=== PATIENT | female | born 1975 | race Caucasian/White ===

== ENCOUNTER 2017-03-28 15:03 | Day surgery (SDC) | payer OTHER ==
[2017-03-28] MEDS ORDERED: ONDANSETRON 4 MG/2 ML VIAL IVP ONE (15:50)
[2017-03-28] MEDS: LACTATED RINGERS 1,000 ML IV SCH ×2 (15:50→16:32)
[2017-03-28] MEDS ORDERED: DEXAMETHASONE SOD PHOSPHATE 10 MG/ML 1 ML VIAL IV ONE (15:51)
[2017-03-28 16:32] LABS: Basophils # (A) 0.1 k/uL (0-0.2); Basophils % (A) 1 %; CH 34.6; CHCM 37.1; Eosinophils # (A) 0.3 k/uL (0-0.7); Eosinophils % (A) 4 %; HCT 39.4 % (34.0-46.0); HDW 2.81; HGB 13.9 gm/dL (11.4-16.0); Luc # (Auto) 0.12; Luc % (Auto) 2; Lymphocytes # (A) 1.5 k/uL (1.0-4.8); Lymphocytes % (A) 23 %; MCH 33.1 pg (25.0-35.0); MCHC 35.3 g/dL (31.0-37.0); MCV 93.5 fL (80.0-100.0); Mean Platelet Volume 7.1; Monocytes # (A) 0.3 k/uL (0-1.0); Monocytes % (A) 5 %; Neutrophils # (A) 4.3 k/uL (1.3-7.7); Neutrophils % (A) 66 %; RBC 4.22 m/uL (3.80-5.40); RDW 12.1 % (11.5-15.5); WBC 6.5 k/uL (3.8-10.6); WBC (Perox) 6.63
[2017-03-28] MEDS ORDERED: MIDAZOLAM 2 MG/2 ML VIAL ONE (16:34)
[2017-03-28] MEDS ORDERED: KETOROLAC 30 MG/ML 1 ML VIAL ONE (16:34)
[2017-03-28] MEDS ORDERED: fentaNYL (PF) 50 MCG/ML 2 ML AMP ONE (16:34)
[2017-03-28] MEDS ORDERED: PROPOFOL 10 MG/ML 20 ML VIAL IV ONE (16:34)
[2017-03-28] MEDS ORDERED: Rhogam IMMUNE GLOBULIN 1,500 UNIT/1 ML IM ONE (16:41)
--- NOTE | 2017-03-28 17:03 | P.OP ---
Date of Procedure: 03/28/17 Preoperative Diagnosis: Missed AB at 9 weeks gestation, Rh- Postoperative Diagnosis: Same Procedure(s) Performed: Suction dilatation and curettage of the uterus Implants: Anesthesia: KADEA Surgeon: Richelle Shah Estimated Blood Loss (ml): 50 IV fluids (ml): 300 Urine output (ml): 0 Pathology: other (Gestational tissue) Condition: stable Disposition: PACU Indications for Procedure: Operative Findings: Description of Procedure: Patient is brought to the operating suite where general anesthetic is administered. She's placed in the dorsal lithotomy position. The cervix, vagina, perineum and periurethral areas are all prepped and draped in the usual sterile fashion. The appropriate timeout was performed to assure proper patient and procedural identification. Bladder is drained, no urine is present. Examination under anesthesia reveals a retroverted uterus that is mobile, symmetric, 8-10 week size. Anterior lip of the cervix is grasped with a double-tooth tenaculum after the weighted speculum is placed. Cervix sounds to a depth of 10 cm in the retroverted position. The cervix is now gently and systematically dilated using Hanks dilators. A #9 curved sterile plastic curette is then placed to the dome of the fundus. Under appropriate filling pressures the uterus is thoroughly curettaged for a moderate amount of tissue. When this is complete, a sharp medium curette is used in the "cry of the uterus" is appreciated in all 4 quadrants. The suction curet is once again placed and no additional tissue or blood is procured. All sponge needle and instrument counts are correct at the end of our procedure. Patient is brought back to the recovery room in very good condition with stable vital signs including blood pressure 105/56, pulse 50, 99% O2 saturation. Patient has been given Toradol prior to leaving the operative suite. She will receive RhoGAM in the postoperative area as well. She will follow-up with me in the office in 2 weeks.
[2017-03-28 17:04] VITALS: TEMP 97.3
[2017-03-28 17:44] VITALS: RESP 16
[2017-03-28 18:00] VITALS: BP 102/66; PULSE 52
== END 2017-03-28 18:16 | disposition home or self-care (01) ==
LOC: OR 15:03
PROVIDERS: ATTEND Obstetrics & Gynecology
DX: O02.1 Missed abortion (principal)
CPT/HCPCS: 86900; 86901; 85025; 86850; 59820; J2791; J2250; J1100; J2405; J3010; J1885; J2704; 88305

== ENCOUNTER 2017-04-03 05:18 | Emergency (ER) | payer OTHER ==
[2017-04-03] MEDS ORDERED: SODIUM CHLORIDE 0.9% 1,000 ML IV ONE (05:40)
[2017-04-03] MEDS ORDERED: MORPHINE SULFATE 4 MG/ML SYRINGE IV STA (05:40)
--- NOTE | 2017-04-03 05:42 | ED ---
General Adult HPI - General Source: patient, family, RN notes reviewed Mode of arrival: ambulatory Limitations: no limitations <Aj Garvin - Last Filed: 04/03/17 06:17> <Cory Casillas - Last Filed: 04/03/17 08:34> - General Chief complaint: Vaginal Bleeding Stated complaint: Vaginal bleeding Time Seen by Provider: 04/03/17 05:36 - History of Present Illness Initial comments: Patient is a pleasant 41-year-old female presenting to the emergency Department with vaginal bleeding. Patient did have D&C done here with Dr. Shah 6 days ago. Patient has had mild discomfort and minimal bleeding since that time. Patient had some increased discomfort and bloating yesterday. Discomfort has been intermittent. Patient has had heavy bleeding since around 4 AM this morning. Discomfort is currently mild to moderate. (Aj Garvin) - Related Data Home Medications Medication Instructions Recorded Confirmed Pnv,Calcium 72/Iron/Folic Acid 1 tab PO DAILY 04/03/17 04/03/17 [ Plus Tablet] Allergies Allergy/AdvReac Type Severity Reaction Status Date / Time No Known Allergies Allergy Verified 04/03/17 07:29 Review of Systems ROS Other: All systems not noted in ROS Statement are negative. Constitutional: Denies: fever Eyes: Denies: eye pain ENT: Denies: ear pain Respiratory: Denies: cough Cardiovascular: Denies: chest pain Endocrine: Denies: fatigue Gastrointestinal: Reports: abdominal pain (Lower abdomen/pelvic) Genitourinary: Denies: dysuria Musculoskeletal: Denies: back pain Skin: Denies: rash Neurological: Denies: weakness <Aj Garvin - Last Filed: 04/03/17 06:17> ROS Other: All systems not noted in ROS Statement are negative. <Cory Casillas - Last Filed: 04/03/17 08:34> ROS Statement: Those systems with pertinent positive or pertinent negative responses have been documented in the HPI. Past Medical History Past Medical History: No Reported History History of Any Multi-Drug Resistant Organisms: None Reported Additional Past Surgical History / Comment(s): ectopic with right tube removal 20 yrs ago,. d&c 18 yrs ago Past Anesthesia/Blood Transfusion Reactions: No Reported Reaction Past Psychological History: No Psychological Hx Reported Smoking Status: Never smoker Past Alcohol Use History: Occasional Past Drug Use History: None Reported - Past Family History Mother Family Medical History: No Reported History <Aj Garvin Last Filed: 04/03/17 06:17> General Exam Limitations: no limitations General appearance: alert, in no apparent distress Head exam: Present: atraumatic Eye exam: Present: normal appearance, PERRL ENT exam: Present: normal oropharynx Neck exam: Present: normal inspection Respiratory exam: Present: normal lung sounds bilaterally Cardiovascular Exam: Present: regular rate, normal rhythm GI/Abdominal exam: Present: soft. Absent: tenderness External exam: Present: normal external exam (RN is present) Speculum exam: Present: vaginal bleeding (Mild to moderate clots in the vaginal vault) By manual exam: Present: normal by manual exam Extremities exam: Present: normal inspection Neurological exam: Present: alert Psychiatric exam: Present: normal affect, normal mood Skin exam: Present: normal color <Aj Garvin Filed: 04/03/17 06:17> General appearance: alert, in no apparent distress Head exam: Present: atraumatic, normocephalic, normal inspection Eye exam: Present: normal appearance, PERRL, EOMI. Absent: scleral icterus, conjunctival injection, periorbital swelling ENT exam: Present: normal exam, mucous membranes moist Neck exam: Present: normal inspection. Absent: tenderness, meningismus, lymphadenopathy Respiratory exam: Present: normal lung sounds bilaterally. Absent: respiratory distress, wheezes, rales, rhonchi, stridor Cardiovascular Exam: Present: regular rate, normal rhythm, normal heart sounds. Absent: systolic murmur, diastolic murmur, rubs, gallop, clicks GI/Abdominal exam: Present: soft, normal bowel sounds. Absent: distended, tenderness, guarding, rebound, rigid Extremities exam: Present: normal inspection, full ROM, normal capillary refill. Absent: tenderness, pedal edema, joint swelling, calf tenderness Back exam: Present: normal inspection Neurological exam: Present: alert, oriented X3, CN II-XII intact Psychiatric exam: Present: normal affect, normal mood Skin exam: Present: warm, dry, intact, normal color. Absent: rash <Cory Casillas - Last Filed: 04/03/17 08:34> Course <Aj Garvin Last Filed: 04/03/17 06:17> <Cory Casillas - Last Filed: 04/03/17 08:34> Vital Signs 04/03/17 04/03/17 05:23 08:22 Temperature 98.4 F 98.6 F Pulse Rate 62 50 L Respiratory 18 15 Rate Blood Pressure 119/77 102/57 O2 Sat by Pulse 99 98 Oximetry - Reevaluation(s) Reevaluation #1: 04/03/17 08:33 At this time patient has no active bleeding (Cory Casillas) Medical Decision Making <Aj Garvin - Last Filed: 04/03/17 06:17> - Lab Data Result diagrams: 04/03/17 06:11 04/03/17 06:11 - Radiology Data Radiology results: report reviewed (Ultrasound consistent with post D&C changes) , image reviewed <Cory Casillas - Last Filed: 04/03/17 08:34> - Medical Decision Making 41 female the ER for evaluation of vaginal bleeding, post D&C, normal changes, patient can be discharged home to follow-up with Dr. Shah (Cory Casillas ) - Lab Data Lab Results 04/03/17 04/03/17 04/03/17 Range/Units 06:11 06:11 06:11 WBC 8.6 (3.8-10.6) k/uL RBC 4.07 (3.80-5.40) m/uL Hgb 14.1 (11.4-16.0) gm/dL Hct 37.8 (34.0-46.0) % MCV 92.8 (80.0-100.0) fL MCH 34.5 (25.0-35.0) pg MCHC 37.2 H (31.0-37.0) g/dL RDW 12.0 (11.5-15.5) % Plt Count 234 (150-450) k/uL Neutrophils % 73 % Lymphocytes % 15 % Monocytes % 4 % Eosinophils % 5 % Basophils % 1 % Neutrophils # 6.2 (1.3-7.7) k/uL Lymphocytes # 1.3 (1.0-4.8) k/uL Monocytes # 0.4 (0-1.0) k/uL Eosinophils # 0.4 (0-0.7) k/uL Basophils # 0.1 (0-0.2) k/uL PT 9.8 (9.0-12.0) sec INR 1.0 (<1.1) APTT 23.2 (22.0-30.0) sec Sodium 142 (137-145) mmol/L Potassium 3.9 (3.5-5.1) mmol/L Chloride 105 (98-107) mmol/L Carbon Dioxide 25 (22-30) mmol/L Anion Gap 12 mmol/L BUN 19 H (7-17) mg/dL Creatinine 0.80 (0.52-1.04) mg/dL Est GFR (MDRD) Af Amer >60 (>60 ml/min/1.73 sqM) Est GFR (MDRD) Non-Af >60 (>60 ml/min/1.73 sqM) Glucose 82 (74-99) mg/dL Calcium 9.8 (8.4-10.2) mg/dL Total Bilirubin 0.7 (0.2-1.3) mg/dL AST 21 (14-36) U/L ALT 34 (9-52) U/L Alkaline Phosphatase 78 (38-126) U/L Total Protein 6.5 (6.3-8.2) g/dL Albumin 4.1 (3.5-5.0) g/dL HCG, Quant 4516.3 mIU/mL Disposition <Aj Garvin - Last Filed: 04/03/17 06:17> <Cory Casillas - Last Filed: 04/03/17 08:34> Clinical Impression: Vaginal bleeding Narrative: Post Op D and C (Cory Casillas) Disposition: HOME SELF-CARE Condition: Good Instructions: Dysfunctional Uterine Bleeding (ED) Referrals: Lenny Clements MD [Primary Care Provider] - 1-2 days
[2017-04-03] MEDS ORDERED: MORPHINE SULFATE 2 MG/ML SYRINGE IVP ONE (06:06)
[2017-04-03 06:30] LABS: Basophils # (A) 0.1 k/uL (0-0.2); Basophils % (A) 1 %; CH 33.5; CHCM 36.3; Eosinophils # (A) 0.4 k/uL (0-0.7); Eosinophils % (A) 5 %; HCT 37.8 % (34.0-46.0); HDW 2.89; HGB 14.1 gm/dL (11.4-16.0); Luc # (Auto) 0.23; Luc % (Auto) 3; Lymphocytes # (A) 1.3 k/uL (1.0-4.8); Lymphocytes % (A) 15 %; MCH 34.5 pg (25.0-35.0); MCHC 37.2 g/dL (31.0-37.0); MCV 92.8 fL (80.0-100.0); Mean Platelet Volume 6.3; Monocytes # (A) 0.4 k/uL (0-1.0); Monocytes % (A) 4 %; Neutrophils # (A) 6.2 k/uL (1.3-7.7); Neutrophils % (A) 73 %; RBC 4.07 m/uL (3.80-5.40); WBC 8.6 k/uL (3.8-10.6); WBC (Perox) 9.07
[2017-04-03 06:39] LABS: ALT 34 U/L (9-52); AST 21 U/L (14-36); Alkaline Phosphatase 78 U/L (38-126); Anion Gap 12 mmol/L; Blood Urea Nitrogen 19 mg/dL (7-17); Calcium 9.8 mg/dL (8.4-10.2); Carbon Dioxide 25 mmol/L (22-30); Chloride 105 mmol/L (98-107); Glucose 82 mg/dL (74-99); Non-African American GFR(MDRD) >60 (>60 ml/min/1.73 sqM); Potassium 3.9 mmol/L (3.5-5.1); Sodium 142 mmol/L (137-145); Total Bilirubin 0.7 mg/dL (0.2-1.3); Total Protein 6.5 g/dL (6.3-8.2)
[2017-04-03 06:44] LABS: Partial Thromboplastin Time 23.2 sec (22.0-30.0); Prothrombin Time 9.8 sec (9.0-12.0)
[2017-04-03 06:54] LABS: HCG,Quantitative Serum 4516.3 mIU/mL
--- NOTE | 2017-04-03 08:12 | US ---
EXAMINATION TYPE: US transvaginal DATE OF EXAM: 04/03/2017 COMPARISON: NONE CLINICAL HISTORY: pain. D&C on Monday- miscarriage. Heavy bleeding this morning. TECHNIQUE: Transvaginal (TV) Date of LMP: unknown EXAM MEASUREMENTS: Uterus: 9.8 x 8.2 x 5.6 cm Endometrial Stripe: 3.3 cm Right Ovary: 3.0 x 1.5 x 1.9 cm Left Ovary: 3.1 x 1.6 x 1.0 cm 1. Uterus: Retroverted wnl 2. Endometrium: thickened, heterogenous, nonvascular 3. Right Ovary: hypoechoic lesion = 1.3 x 1.3 x 1.2 cm 4. Left Ovary: follicles Spectral, color and waveform doppler imaging shows good arterial and venous flow within the ovaries ; there is no evidence for ovarian torsion. 5. Bilateral Adnexa: free fluid seen in left adnexa. Cystic lesion seen, unable to determine origin - 2.2 x 3.8 x 2.0 cm 6. Posterior cul-de-sac: no free fluid IMPRESSION: 1. Endometrial thickening and heterogeneity compatible with the history of recent D&C. 2. Simple appearing cyst right ovary. 3. Complex cystic lesion in left adnexa with adjacent free fluid.
[2017-04-03 08:23] VITALS: TEMP 98.6
[2017-04-03 09:11] VITALS: BP 94/61; PULSE 51; RESP 18
== END 2017-04-03 09:10 | disposition home or self-care (01) ==
LOC: EC 05:18
DX: N93.9 Abnormal uterine and vaginal bleeding, unspecified (principal); R14.0 Abdominal distension (gaseous); Z53.20 Procedure and treatment not carried out because of patient's decision for unspecified reasons; Z79.899 Other long term (current) drug therapy
CPT/HCPCS: 36415; 80053; 85025; 85610; 85730; 84702; 93975; 76830; 99284; 96374; 96361 ×3; J2270

== ENCOUNTER → 2017-05-30 | Outpatient (CLI) | payer OTHER ==
--- NOTE | 2017-06-01 10:28 | MM ---
Reason for exam: screening (asymptomatic). Last mammogram was performed 1 year ago. History: Family history of breast cancer in maternal grandmother at age 45. Took hormonal contraceptives for 18 years beginning at age 19. Physical Findings: A clinical breast exam by your physician is recommended on an annual basis and results should be correlated with mammographic findings. MG 3D Screening Mammo W/Cad Bilateral CC and MLO view(s) were taken. Prior study comparison: May 17, 2016, bilateral MG 3d screening mammo w/cad. July 15, 2011, bilateral screening mammogram free. The breast tissue is heterogeneously dense. This may lower the sensitivity of mammography. No suspicious abnormality. No significant changes when compared with prior studies. ASSESSMENT: Negative, BI-RAD 1 RECOMMENDATION: Routine screening mammogram of both breasts in 1 year.
== END | disposition home or self-care (01) ==
LOC: RADMAMWWP 12:49
PROVIDERS: ATTEND Pediatrics
DX: Z12.31 Encounter for screening mammogram for malignant neoplasm of breast (principal)
CPT/HCPCS: 77063; G0202

== ENCOUNTER 2018-10-26 23:33 | Inpatient (IN) | payer OTHER ==
[2018-10-26] MEDS ORDERED: LACTATED RINGERS 1,000 ML IV SCH (23:45)
[2018-10-26] MEDS ORDERED: OXYTOCIN 20 UNITS/1000 ML NS 1,000 ML IV SCH (23:45)
[2018-10-26] MEDS ORDERED: CARBOPROST TROMETHAMINE 250 MCG/ML 1 ML AMP IM PRN (23:55)
[2018-10-26] MEDS ORDERED: PENICILLIN G POTASSIUM 5,000,000 UNIT in DEXTROSE 5% IN WATER 100 ML IVPB STA ×2 (23:55)
[2018-10-26] MEDS ORDERED: TERBUTALINE 1 MG/ML VIAL SQ PRN (23:55)
[2018-10-26] MEDS ORDERED: METHYLERGONOVINE 0.2 MG/ML 1 ML AMP IM PRN (23:55)
[2018-10-26] MEDS ORDERED: OXYTOCIN 10 UNIT/ML 1 ML VIAL IM PRN (23:55)
[2018-10-26] MEDS ORDERED: LIDOCAINE 0.5% (PF) 5 MG/ML (50 ML SDV) SQ PRN (23:55)
[2018-10-27 00:21] VITALS: BMI 24.6
[2018-10-27 00:57] LABS: Basophils # (A) 0.1 k/uL (0-0.2); Basophils % (A) 1 %; Eosinophils # (A) 0.2 k/uL (0-0.7); Eosinophils % (A) 3 %; HCT 39.6 % (34.0-46.0); HGB 13.7 gm/dL (11.4-16.0); Lymphocytes # (A) 1.2 k/uL (1.0-4.8); Lymphocytes % (A) 15 %; MCH 33.4 pg (25.0-35.0); MCHC 34.6 g/dL (31.0-37.0); MCV 96.4 fL (80.0-100.0); Mean Platelet Volume 6.3; Monocytes # (A) 0.4 k/uL (0-1.0); Monocytes % (A) 5 %; Neutrophils # (A) 6.5 k/uL (1.3-7.7); Neutrophils % (A) 76 %; Platelet Count 257 k/uL (150-450); RBC 4.11 m/uL (3.80-5.40); RDW 12.6 % (11.5-15.5); WBC 8.5 k/uL (3.8-10.6)
--- NOTE | 2018-10-27 02:35 | P.HPOB ---
History of Present Illness H&P Date: 10/27/18 Chief Complaint: Labor This is a 43 year old 5 para 2021 woman who presents at 39-5/7 weeks in spontaneous active labor with rupture of membranes. She reports spontaneous rupture of membranes at approximately 2300 on 10/26/2018. Upon presentation rupture of membranes with light meconium-stained fluid is confirmed. She was 3 cm dilated on presentation. has been uncomplicated. She is known group B strep positive and Rh-. Obstetric history: Term normal spontaneous vaginal deliveries in and 2000. Ectopic 1996 missed AB 2016 Laboratory data: Blood type O negative, antibody screen negative, rubella immune , VDRL nonreactive, hepatitis B surface antigen negative, gonorrhea and clinic cultures negative, glucose tolerance testing within normal limits. Group B strep cultures positive. Review of Systems All systems: negative Past Medical History Past Medical History: No Reported History Additional Past Medical History / Comment(s): 1998, 2000 History of Any Multi-Drug Resistant Organisms: None Reported Additional Past Surgical History / Comment(s): ectopic with right tube removal 20 yrs ago,. d&c 18 yrs ago Past Anesthesia/Blood Transfusion Reactions: No Reported Reaction Past Psychological History: No Psychological Hx Reported Smoking Status: Never smoker Past Alcohol Use History: Occasional Past Drug Use History: None Reported - Past Family History Mother Family Medical History: No Reported History Medications and Allergies Home Medications Medication Instructions Recorded Confirmed Type Pnv,Calcium 72/Iron/Folic Acid 1 tab PO DAILY 04/03/17 10/27/18 History [ Plus Tablet] Allergies Allergy/AdvReac Type Severity Reaction Status Date / Time No Known Allergies Allergy Verified 10/26/18 23:54 Exam Vital Signs Temp Pulse Resp BP Pulse Ox 10/27/18 00:16 97.8 F 75 16 119/79 10/26/18 23:54 97.8 F 75 16 117/79 100 Intake and Output 10/26/18 10/26/18 10/27/18 14:59 22:59 06:59 Other: Weight 67.132 kg Upon my initial evaluation patient is completely dilated and involuntarily pushing. Results Result Diagrams: 10/27/18 00:20 Assessment and Plan (1) 39 weeks gestation of Current Visit: Yes Status: Acute Code(s): Z3A.39 - 39 WEEKS GESTATION OF SNOMED Code(s): 36261030 (2) Advanced maternal age (AMA) in Current Visit: Yes Status: Acute Code(s): ZFS5829 - SNOMED Code(s): 237443953 (3) GBS (group B Streptococcus carrier), +RV culture, currently Current Visit: Yes Status: Acute Code(s): O99.820 - STREPTOCOCCUS B CARRIER STATE COMPLICATING SNOMED Code(s): 8745353970632 (4) Rh negative, maternal Current Visit: Yes Status: Acute Code(s): O26.899 - OTH RELATED CONDITIONS, UNSPECIFIED TRIMESTER; Z67.91 - UNSPECIFIED BLOOD TYPE, RH NEGATIVE SNOMED Code(s): 454460309 Plan: 43-year-old 5 para 20-2 woman in spontaneous active labor with rupture of membranes, meconium-stained fluid. status is reassuring by external monitoring. She is receiving prophylactic group B strep antibiotics. She is Rh-. Anticipate normal spontaneous vaginal delivery.
[2018-10-27] MEDS ORDERED: BENZOCAINE/MENTHOL SPRAY 1 GM/SPRAY AEROSOL TOPICAL PRN (02:39)
[2018-10-27] MEDS ORDERED: diphenhydrAMINE 50 MG/ML 1 ML VIAL IVP PRN ×2 (02:39)
[2018-10-27] MEDS ORDERED: diphenhydrAMINE 50 MG CAP PO PRN (02:39)
[2018-10-27] MEDS ORDERED: WITCH HAZEL 1 EACH MED..PAD TOPICAL PRN (02:39)
[2018-10-27] MEDS ORDERED: diphenhydrAMINE 25 MG CAP PO PRN (02:39)
[2018-10-27] MEDS ORDERED: HYDROCORTISONE 2.5% RECTAL CREAM 30 GM TUBE RECTAL PRN (02:39)
[2018-10-27] MEDS ORDERED: ZOLPIDEM 5 MG TAB PO PRN (02:39)
[2018-10-27] MEDS ORDERED: LANOLIN CREAM 5 GM TUBE TOPICAL PRN (02:39)
[2018-10-27] MEDS ORDERED: ACETAMINOPHEN TAB 325 MG TAB PO PRN (02:39)
[2018-10-27] MEDS ORDERED: SIMETHICONE 80 MG CHEWABLE PO PRN (02:39)
[2018-10-27] MEDS ORDERED: IBUPROFEN 600 MG TAB PO PRN (02:39)
--- NOTE | 2018-10-27 02:39 | P.PROBDLV ---
Vaginal Delivery Note - . Vaginal Delivery Note: Findings: Male infant in the vertex occiput anterior position with Apgars of 8 at 1 minute and 9 at 5 minutes weighing 7 lbs. 6 oz., 3330 g. Light meconium- stained fluid. First-degree perineal laceration. Intact, three-vessel cord placenta with meconium staining of membranes. EBL 150 mL's. Delivery summary: This is a 43-year-old 5 para 20-2 woman who presented at 39-5/7 weeks gestation with spontaneous rupture of membranes and active labor. She was 3 cm dilated upon presentation and rapidly progressed to complete over approximately 2 hours. heart tones are reassuring throughout the first stage of labor she did receive penicillin group B strep prophylaxis. She reached complete cervical dilation by approximately 2 AM and commenced pushing with strong maternal effort. She was repositioned, prepped and draped in the modified dorsal lithotomy position. With additional maternal effort the head delivered from the direct occiput anterior position. There was no time for suctioning of the nose and mouth on the perineum secondary to strong maternal expulsive efforts. The rest the infant was delivered rapidly delivered onto the field where the nose and mouth were further bulb suctioned after the baby had immediate spontaneous cry. There was placed on the maternal abdomen where the cord was clamped and cut. Apgars were 8 at 1 minute and 9 at 5 minutes with a weight of 7 lbs. 6 oz. First-degree shallow perineal laceration was noted and was infused with lidocaine. This was repaired with 3- 0 Vicryl suture. An intact, meconium-stained placenta was then expressed after an approximately 5 minute third stage of labor. The uterus was massaged and was noted to be firm. Patient received Pitocin following the third stage of labor. EBL was approximately 150 mL's. Uterus was firm at the level of the umbilicus. Both mother and were doing well post delivery in the room.
[2018-10-27] MEDS ORDERED: OXYTOCIN 20 UNITS/1000 ML NS 1,000 ML IV SCH (02:45)
[2018-10-27] MEDS: SENNOSIDES-DOCUSATE SODIUM 1 EACH TAB PO SCH ×2 (08:00→19:50)
[2018-10-27] MEDS ORDERED: Rhogam IMMUNE GLOBULIN 1,500 UNIT/1 ML IM ONE (18:47)
[2018-10-27] MEDS: PENICILLIN G POTASSIUM 2,500,000 UNIT in DEXTROSE 5% IN WATER 100 ML IVPB SCH ×2 (19:51)
--- NOTE | 2018-10-28 10:07 | P.PNOBGVD ---
Subjective - Subjective Principal diagnosis: day #1 Patient reports: Reports appetite normal, Reports voiding normally, Reports pain well controlled, Reports ambulating normally : doing well, other (Awaiting blood cultures. Discharge anticipated at 48 hours.) Objective - Latest Vital Signs Latest vital signs: Vital Signs Temp Pulse Resp BP Pulse Ox 10/28/18 09:18 98.1 F 83 18 99/69 10/27/18 23:22 98.2 F 78 18 102/70 100 10/27/18 20:00 98 F 74 18 116/72 98 10/27/18 16:00 98.1 F 80 18 110/65 10/27/18 12:00 98.0 F 82 18 114/75 - Exam Extremities: Present: normal Abdomen: Present: normal appearance Uterus: Present: normal Assessment and Plan (1) 39 weeks gestation of Current Visit: Yes Status: Acute Code(s): Z3A.39 - 39 WEEKS GESTATION OF SNOMED Code(s): 21207032 (2) Advanced maternal age (AMA) in Current Visit: Yes Status: Acute Code(s): VMB8041 - SNOMED Code(s): 098652166 (3) GBS (group B Streptococcus carrier), +RV culture, currently Current Visit: Yes Status: Acute Code(s): O99.820 - STREPTOCOCCUS B CARRIER STATE COMPLICATING SNOMED Code(s): 3061760201553 (4) Rh negative, maternal Current Visit: Yes Status: Acute Code(s): O26.899 - OTH RELATED CONDITIONS, UNSPECIFIED TRIMESTER; Z67.91 - UNSPECIFIED BLOOD TYPE, RH NEGATIVE SNOMED Code(s): 000207947 (5) Normal spontaneous vaginal delivery Current Visit: Yes Status: Acute Code(s): O80 - ENCOUNTER FOR FULL-TERM UNCOMPLICATED DELIVERY SNOMED Code(s): 42118678 (6) Perineal laceration with delivery, first degree Current Visit: Yes Status: Acute Code(s): O70.0 - FIRST DEGREE PERINEAL LACERATION DURING DELIVERY SNOMED Code(s): 063552675 Plan: day #1 status post normal spontaneous vaginal delivery. Patient recovering well however onto is recommended to remain for 48 hours secondary to group B strep positive status awaiting blood cultures. Anticipate discharge home tomorrow.
[2018-10-28] MEDS: SENNOSIDES-DOCUSATE SODIUM 1 EACH TAB PO SCH (20:14)
[2018-10-29] MEDS: SENNOSIDES-DOCUSATE SODIUM 1 EACH TAB PO SCH (07:29)
--- NOTE | 2018-10-29 08:08 | P.DS ---
Providers Date of admission: 10/26/18 23:57 Expected date of discharge: 10/29/18 Attending physician: Richelle Shah Primary care physician: Stated None Hospital Course: This is a 43-year-old white female 5 para 20-2 EDC 10/29/2018 at 39-5/7 weeks' gestation. Patient presented with spontaneous amniorrhexis which occurred at home, thin meconium-stained fluid. is unremarkable, rubella status immune, group B strep cultures positive, blood type O-, advanced maternal age noted. Please see admitting history and physical for details. Patient progressed well through labor and went on to deliver vaginally a liveborn male infant with scores of 8 and 9 at one and 5 minutes respectively. He weighed 3330 g, or 7 lbs. 6 oz. There was an estimated blood loss of 150 mL, and a small first-degree perineal laceration easily repaired. Please see dictated delivery note for details. This morning the patient is doing well. She is voiding, ambulating and passing flatus without difficulty. Vital signs are stable and she is afebrile. Fundus is firm and in the midline, symmetric and 18 week size. Extremities are negative. Breast-feeding is going well. has been circumcised and is also doing well. Patient is judged to be in very good condition for discharge home. She will follow-up with me in the office in 6 weeks. I have reminded her no intercourse, tampons or douching. I have given her prescription for a double electric breast pump, she will continue taking her vitamin daily. She will use [id number] Advil, Motrin or Aleve as needed for pain. I've asked her to call me with any fevers shakes or chills, foul smelling or copious lochia, with the passage of large blood clots, with any pain not alleviated by [id number] products, or indeed with any difficulties problems or concerns. We have discussed options for contraception and we will discuss this further in the office. Patient Condition at Discharge: Good Plan - Discharge Summary Discharge Rx Participant: No New Discharge Prescriptions: No Action Pnv,Calcium 72/Iron/Folic Acid [ Plus Tablet] 1 tab PO DAILY Discharge Medication List Pnv,Calcium 72/Iron/Folic Acid [ Plus Tablet] 1 tab PO DAILY 04/03/17 [ History] Follow up Appointment(s)/Referral(s): Richelle Shah MD [STAFF PHYSICIAN] - 6 Weeks Discharge Disposition: HOME SELF-CARE
[2018-10-29 08:42] VITALS: BP 98/64; PULSE 76; RESP 20; TEMP 97.8
== END 2018-10-29 10:50 | disposition home or self-care (01) | DRG 807 ==
LOC: FBPOP 23:33 → 4FBP 23:57
PROVIDERS: ADMIT Obstetrics & Gynecology; ATTEND Obstetrics & Gynecology
PROC: 10E0XZZ Delivery of Products of Conception, External Approach (ICD-10-PCS; principal; 2018-10-27)
PROC: 0HQ9XZZ Repair Perineum Skin, External Approach (ICD-10-PCS; 2018-10-27)
PROC: 3E0234Z Introduction of Serum, Toxoid and Vaccine into Muscle, Percutaneous Approach (ICD-10-PCS; 2018-10-27)
DX: O77.0 Labor and delivery complicated by meconium in amniotic fluid (principal); Z37.0 Single live birth; O26.893 Other specified pregnancy related conditions, third trimester; Z67.41 Type O blood, Rh negative; O99.824 Streptococcus B carrier state complicating childbirth; O70.0 First degree perineal laceration during delivery; Z3A.39 39 weeks gestation of pregnancy; Z79.899 Other long term (current) drug therapy
CPT/HCPCS: 59025; 84112; 85025; 85461; 86850; 86870; 86880; 86900; 86901; 88307; 99213

== ENCOUNTER → 2020-08-24 | Outpatient (CLI) | payer OTHER ==
--- NOTE | 2020-08-26 08:33 | MM ---
Reason for exam: screening (asymptomatic). Last mammogram was performed 3 years and 3 months ago. History: Family history of breast cancer in maternal grandmother at age 45. Took hormonal contraceptives for 18 years beginning at age 19. Physical Findings: A clinical breast exam by your physician is recommended on an annual basis and results should be correlated with mammographic findings. MG 3D Screening Mammo W/Cad Bilateral CC and MLO view(s) were taken. Prior study comparison: May 30, 2017, bilateral MG 3d screening mammo w/cad. May 17, 2016, bilateral MG 3d screening mammo w/cad. The breast tissue is extremely dense which could obscure a lesion on mammography. Focal asymmetry left MLO view. This finding is changed when compared with previous exams. ASSESSMENT: Incomplete: need additional imaging evaluation, BI-RAD 0 RECOMMENDATION: Special view mammogram of the left breast. If lesion persists on supplemental views, image directed ultrasound is recommended. [facility] will attempt to contact patient to return for supplemental views and ultrasound if indicated.
== END | disposition home or self-care (01) ==
LOC: RADMAMWWP 12:56
PROVIDERS: ATTEND Pediatrics
DX: Z12.31 Encounter for screening mammogram for malignant neoplasm of breast (principal)
CPT/HCPCS: 77063; 77067

== ENCOUNTER → 2020-08-27 | Outpatient (CLI) | payer OTHER ==
--- NOTE | 2020-08-27 10:15 | MM ---
Reason for exam: additional evaluation requested from abnormal screening. Last mammogram was performed less than 1 month ago. History: Family history of breast cancer in maternal grandmother at age 45. Took hormonal contraceptives for 18 years beginning at age 19. Physical Findings: Nurse did not find any significant physical abnormalities on exam. MG 3D Work Up W/Cad LT CC and MLO view(s) were taken of the left breast. Prior study comparison: August 24, 2020, bilateral MG 3d screening mammo w/cad. May 30, 2017, bilateral MG 3d screening mammo w/cad. The breast tissue is heterogeneously dense. This may lower the sensitivity of mammography. There is no discrete abnormality. These results were verbally communicated with the patient and result sheet given to the patient on 08/27/20. ASSESSMENT: Negative, BI-RAD 1 RECOMMENDATION: Return to routine screening mammogram schedule for both breasts.
== END | disposition home or self-care (01) ==
LOC: RADMAMWWP 08:51
PROVIDERS: ATTEND Pediatrics
DX: R92.8 Other abnormal and inconclusive findings on diagnostic imaging of breast (principal)
CPT/HCPCS: 77065; G0279; 77061

== ENCOUNTER 2020-10-28 11:18 | Emergency (ER) | payer OTHER ==
[2020-10-28 11:27] VITALS: RESP 18; TEMP 98.4
--- NOTE | 2020-10-28 12:25 | XR ---
EXAMINATION TYPE: XR chest 1V portable DATE OF EXAM: 10/28/2020 COMPARISON: None HISTORY: Covid pneumonia TECHNIQUE: AP chest FINDINGS: Heart size is normal. Pulmonary vasculature is normal. Lungs are clear. IMPRESSION: 1. Normal portable chest
[2020-10-28 12:29] LABS: Basophils # (A) 0.1 k/uL (0-0.2); Basophils % (A) 1 %; Eosinophils # (A) 0.1 k/uL (0-0.7); Eosinophils % (A) 2 %; HCT 43.9 % (34.0-46.0); HGB 15.6 gm/dL (11.4-16.0); Lymphocytes # (A) 0.4 k/uL (1.0-4.8); Lymphocytes % (A) 9 %; MCH 33.7 pg (25.0-35.0); MCHC 35.5 g/dL (31.0-37.0); MCV 94.9 fL (80.0-100.0); Mean Platelet Volume 6.7; Monocytes # (A) 0.2 k/uL (0-1.0); Monocytes % (A) 4 %; Neutrophils # (A) 3.4 k/uL (1.3-7.7); Neutrophils % (A) 82 %; Platelet Count 171 k/uL (150-450); RBC 4.62 m/uL (3.80-5.40); RDW 11.3 % (11.5-15.5); WBC 4.1 k/uL (3.8-10.6)
[2020-10-28 12:42] LABS: Partial Thromboplastin Time 24.8 sec (22.0-30.0); Prothrombin Time 10.4 sec (9.0-12.0)
--- NOTE | 2020-10-28 12:43 | ED ---
URI HPI - General Chief Complaint: Upper Respiratory Infection Stated Complaint: chest tightness Time Seen by Provider: 10/28/20 11:29 Source: patient Mode of arrival: ambulatory Limitations: no limitations - History of Present Illness Initial Comments: 45-year-old by mouth presenting for on and off chest discomfort since Monday. Pt states that she recently was exposed to covid and developed symptoms. she states she tested positive in September but at that time had no symptoms and felt like she did not actually have it. She states she was recently exposured and began to develop symptoms such as chills, malaise, cough. she states on and off chest dis comfort like she cant expand her lungs they feel giht. denies substernal or current chest pain. denies sharp pain with a deep breath. denies idigestions, arm or jaw pain. states at time when she swallows she has a discomfort. patient denies difficulty swallowing. pt denies headaches or neck stiffness, denies leg of calf swelling, hemoptysis or hx of blood clots. patient appears in no acute distress on arrival. VS within acceptable history. denies family history of premature CAD, denies every being a smoker. Denies HTN, DM. - Related Data Home Medications Medication Instructions Recorded Confirmed Cpm/PE/Dm/Acetaminophen/Guaifn 1 tab PO DAILY PRN 10/28/20 10/28/20 [Tylenol Cold-Flu Day-Nt Caplet] Previous Rx's Medication Instructions Recorded predniSONE 50 mg PO DAILY 4 Days #4 tab 10/28/20 Allergies Allergy/AdvReac Type Severity Reaction Status Date / Time No Known Allergies Allergy Verified 10/28/20 12:02 Review of Systems ROS Statement: Those systems with pertinent positive or pertinent negative responses have been documented in the HPI. ROS Other: All systems not noted in ROS Statement are negative. Past Medical History Past Medical History: No Reported History Additional Past Medical History / Comment(s): 1998, 2000 History of Any Multi-Drug Resistant Organisms: None Reported Additional Past Surgical History / Comment(s): ectopic with right tube removal 20 yrs ago,. d&c 18 yrs ago Past Anesthesia/Blood Transfusion Reactions: No Reported Reaction Past Psychological History: No Psychological Hx Reported Past Alcohol Use History: Occasional Past Drug Use History: None Reported - Past Family History Mother Family Medical History: No Reported History General Exam - General Exam Comments Initial Comments: General: The patient is awake and alert, in no distress Eye: +3 mm pupils are equal, round and reactive to light, extra-ocular movements are intact. No nystagmus. There is normal conjunctiva bilaterally. No signs of icterus. Ears, nose, mouth and throat: There are moist mucous membranes and no oral lesions. Neck: The neck is supple, there is no tenderness or JVD. Cardiovascular: There is a regular rate and rhythm. No murmur, rub or gallop is appreciated. Respiratory: Lungs are clear to auscultation, respirations are non-labored, breath sounds are equal. No wheezes, stridor, rales, or rhonchi. Gastrointestinal: Soft, non-distended, non-tender abdomen without masses or organomegaly noted. There is no rebound or guarding present. Musculoskeletal: Normal ROM, no tenderness. Strength 5/5. Sensation intact. Radial and DP pulses equal bilaterally 2+. Neurological: A&O x 3. CN II-XII intact grossly, There are no obvious motor or sensory deficits. Coordination appears grossly intact. Speech is normal. Skin: Skin is warm and dry and no rashes or lesions are noted. Psychiatric: Cooperative, appropriate mood & affect, normal judgment. Limitations: no limitations Course Vital Signs 10/28/20 11:22 Temperature 98.4 F Pulse Rate 74 Respiratory 18 Rate Blood Pressure 102/69 O2 Sat by Pulse 100 Oximetry Medical Decision Making - Medical Decision Making No distress. lungs clear. pt very well appearing. VS within acceptable limits. Labs stable aside from elevated dimer. CTA (-) PE CXR no infiltrates. No current chest discomfort. Pt not hypoxic. discomfort appears atpyical she felt it was more upper respiratory in sensation and concered of covid. patient troponin (-). No other complaints. case discussed with Dr. Campbell who is agreeable to discharge with pcp f/u. - Lab Data Result diagrams: 10/28/20 11:50 10/28/20 11:50 Lab Results 10/28/20 10/28/20 10/28/20 Range/Units 11:50 11:50 11:50 WBC 4.1 (3.8-10.6) k/uL RBC 4.62 (3.80-5.40) m/uL Hgb 15.6 (11.4-16.0) gm/dL Hct 43.9 (34.0-46.0) % MCV 94.9 (80.0-100.0) fL MCH 33.7 (25.0-35.0) pg MCHC 35.5 (31.0-37.0) g/dL RDW 11.3 L (11.5-15.5) % Plt Count 171 (150-450) k/uL MPV 6.7 Neutrophils % 82 % Lymphocytes % 9 % Monocytes % 4 % Eosinophils % 2 % Basophils % 1 % Neutrophils # 3.4 (1.3-7.7) k/uL Lymphocytes # 0.4 L (1.0-4.8) k/uL Monocytes # 0.2 (0-1.0) k/uL Eosinophils # 0.1 (0-0.7) k/uL Basophils # 0.1 (0-0.2) k/uL PT 10.4 (9.0-12.0) sec INR 1.0 (<1.2) APTT 24.8 (22.0-30.0) sec D-Dimer 0.80 H (<0.60) mg/L FEU Sodium 137 (137-145) mmol/L Potassium 3.8 (3.5-5.1) mmol/L Chloride 104 (98-107) mmol/L Carbon Dioxide 26 (22-30) mmol/L Anion Gap 7 mmol/L BUN 21 H (7-17) mg/dL Creatinine 0.79 (0.52-1.04) mg/dL Est GFR (CKD-EPI)AfAm >90 (>60 ml/min/1.73 sqM) Est GFR (CKD-EPI)NonAf >90 (>60 ml/min/1.73 sqM) Glucose 79 (74-99) mg/dL Plasma Lactic Acid Zak (0.7-2.0) mmol/L Calcium 9.4 (8.4-10.2) mg/dL Magnesium 2.1 (1.6-2.3) mg/dL Total Bilirubin 0.5 (0.2-1.3) mg/dL AST 31 (14-36) U/L ALT 28 (4-34) U/L Alkaline Phosphatase 70 (38-126) U/L Lactate Dehydrogenase 365 (313-618) U/L Troponin I (0.000-0.034) ng/mL C-Reactive Protein <5.0 (<10.0) mg/L Total Protein 7.3 (6.3-8.2) g/dL Albumin 4.5 (3.5-5.0) g/dL 10/28/20 10/28/20 Range/Units 11:50 11:50 WBC (3.8-10.6) k/uL RBC (3.80-5.40) m/uL Hgb (11.4-16.0) gm/dL Hct (34.0-46.0) % MCV (80.0-100.0) fL MCH (25.0-35.0) pg MCHC (31.0-37.0) g/dL RDW (11.5-15.5) % Plt Count (150-450) k/uL MPV Neutrophils % % Lymphocytes % % Monocytes % % Eosinophils % % Basophils % % Neutrophils # (1.3-7.7) k/uL Lymphocytes # (1.0-4.8) k/uL Monocytes # (0-1.0) k/uL Eosinophils # (0-0.7) k/uL Basophils # (0-0.2) k/uL PT (9.0-12.0) sec INR (<1.2) APTT (22.0-30.0) sec D-Dimer (<0.60) mg/L FEU Sodium (137-145) mmol/L Potassium (3.5-5.1) mmol/L Chloride (98-107) mmol/L Carbon Dioxide (22-30) mmol/L Anion Gap mmol/L BUN (7-17) mg/dL Creatinine (0.52-1.04) mg/dL Est GFR (CKD-EPI)AfAm (>60 ml/min/1.73 sqM) Est GFR (CKD-EPI)NonAf (>60 ml/min/1.73 sqM) Glucose (74-99) mg/dL Plasma Lactic Acid Zak 1.2 (0.7-2.0) mmol/L Calcium (8.4-10.2) mg/dL Magnesium (1.6-2.3) mg/dL Total Bilirubin (0.2-1.3) mg/dL AST (14-36) U/L ALT (4-34) U/L Alkaline Phosphatase (38-126) U/L Lactate Dehydrogenase (313-618) U/L Troponin I <0.012 (0.000-0.034) ng/mL C-Reactive Protein (<10.0) mg/L Total Protein (6.3-8.2) g/dL Albumin (3.5-5.0) g/dL Disposition Clinical Impression: Body aches, COVID-19, Chills, Chest discomfort Disposition: HOME SELF-CARE Condition: Good Instructions (If sedation given, give patient instructions): Upper Respiratory Infection (ED) Additional Instructions: Please use medication as discussed. Please follow-up with family doctor in the next 2 days, deepak hahnid infection i recommend outpatient stress test and echocardiogram. Please return to emergency room if the symptoms increase or worsen or for any other concerns. Is patient prescribed a controlled substance at d/c from ED?: No Referrals: Lenny Clements MD [Primary Care Provider] - 1-2 days Time of Disposition: 13:27
[2020-10-28 12:44] LABS: ALT 28 U/L (4-34); AST 31 U/L (14-36); African American GFR (CKD) >90 (>60 ml/min/1.73 sqM); Albumin 4.5 g/dL (3.5-5.0); Alkaline Phosphatase 70 U/L (38-126); Anion Gap 7 mmol/L; Blood Urea Nitrogen 21 mg/dL (7-17); C Reactive Protein <5.0 mg/L (<10.0); Calcium 9.4 mg/dL (8.4-10.2); Carbon Dioxide 26 mmol/L (22-30); Chloride 104 mmol/L (98-107); D-Dimer 0.8 mg/L FEU (<0.60); Glucose 79 mg/dL (74-99); LDH 365 U/L (313-618); Magnesium 2.1 mg/dL (1.6-2.3); Non-African American GFR(CKD) >90 (>60 ml/min/1.73 sqM); Potassium 3.8 mmol/L (3.5-5.1); Sodium 137 mmol/L (137-145); Total Bilirubin 0.5 mg/dL (0.2-1.3); Total Protein 7.3 g/dL (6.3-8.2)
--- NOTE | 2020-10-28 13:20 | CT ---
EXAMINATION TYPE: CT chest angio for PE DATE OF EXAM: 10/28/2020 COMPARISON: Chest x-ray earlier today HISTORY: Shortness of breath and chest discomfort. CT DLP: 270.3 mGycm Automated exposure control for dose reduction was used. CONTRAST: CT Chest for pulmonary embolism performed with with IV Contrast, patient injected with 100 mL of Isov ue 370. FINDINGS: LUNGS: The lungs are grossly clear, there is no concerning parenchymal mass or nodule identified. T here is no pleural effusion or pneumothorax seen. The tracheobronchial tree is patent. MEDIASTINUM: There is satisfactory enhancement of the pulmonary artery and its branches, there is no CT evidence for pulmonary embolism. Satisfactory enhancement of the aorta without dissection or aneur ysm. There are no greater than 1 cm hilar or mediastinal lymph nodes. No cardiomegaly or pericardia l effusion is seen. OTHER: There are simple appearing 3.6 cm partially exophytic thin-walled cyst anteriorly upper pole right kidney. Patient has virtual no intra-abdominal fat making evaluation of upper abdomen suboptima l. Accessory right renal artery noted. There is direct origin of the left gastrohepatic artery from t he abdominal aorta, normal variant. IMPRESSION: No CT evidence for acute pulmonary embolism. No suspicious acute pulmonary process.
[2020-10-28 13:49] VITALS: BP 98/63; PULSE 65
[2020-10-29 04:10] LABS: Ferritin 119.2 ng/mL (10.0-291.0)
== END 2020-10-28 13:48 | disposition home or self-care (01) ==
LOC: EC 11:18
DX: U07.1 COVID-19 (principal); R79.89 Other specified abnormal findings of blood chemistry
CPT/HCPCS: 36415; 93005; 85379; 80053; 82728; 83605; 83615; 83735; 84484; 85025; 85610; 85730; 86140; 84145; 71045; 71275; 99284; Q9967

== ENCOUNTER → 2021-04-15 | Outpatient (CLI) | payer OTHER | END | disposition home or self-care (01) | DX: M47.812 Spondylosis without myelopathy or radiculopathy, cervical region (principal) ==

== ENCOUNTER → 2021-09-20 | Outpatient (CLI) | payer OTHER ==
--- NOTE | 2021-09-22 12:14 | MM ---
Reason for exam: screening (asymptomatic). Last mammogram was performed 1 year and 1 month ago. History: Family history of breast cancer in maternal grandmother at age 45. Took hormonal contraceptives for 18 years beginning at age 19. Physical Findings: A clinical breast exam by your physician is recommended on an annual basis and results should be correlated with mammographic findings. MG 3D Screening Mammo W/Cad Bilateral CC and MLO view(s) were taken. Prior study comparison: August 27, 2020, left breast MG 3d work up w/cad LT. August 24, 2020, bilateral MG 3d screening mammo w/cad. The breast tissue is heterogeneously dense. This may lower the sensitivity of mammography. Stable central left MLO asymmetric density compared to 2020. No significant changes when compared with prior studies. ASSESSMENT: Benign, BI-RAD 2 RECOMMENDATION: Routine screening mammogram of both breasts in 1 year. Patient should continue monthly self breast exams. A negative report should not preclude additional follow up of suspicious palpable abnormalities.
== END | disposition home or self-care (01) ==
LOC: RADMAMWWP 15:45
PROVIDERS: ATTEND Pediatrics
DX: Z12.31 Encounter for screening mammogram for malignant neoplasm of breast (principal); Z80.3 Family history of malignant neoplasm of breast
CPT/HCPCS: 77063; 77067

== ENCOUNTER → 2022-10-19 | Outpatient (CLI) | payer OTHER ==
--- NOTE | 2022-10-20 19:47 | MM ---
Reason for Exam: Screening (asymptomatic). Last mammogram was performed 1 year(s) and 1 month(s) ago. Patient History: Menarche at age 14. First Full-Term at age 23. Currently using Hormonal Contraceptives, beginning at age 19 for 18 years. Maternal grandmother had breast cancer, age 45. Last menstrual period: 10/18/2022 Risk Values: Claritza 5 year model risk: 0.8%. NCI Lifetime model risk: 8.5%. Prior Study Comparison: 08/24/2020 Bilateral Screening Mammogram, [facility]. 08/27/2020 Left Diagnostic Mammogram, [facility]. 09/20/2021 Bilateral Screening Mammogram, [facility]. Tissue Density: The breast tissue is heterogeneously dense. This may lower the sensitivity of mammography. Findings: Analyzed By CAD. There is no suspicious group of microcalcifications or new suspicious mass in either breast. Overall Assessment: Benign, BI-RAD 2 Management: Screening Mammogram of both breasts in 1 year. 1. Patient should continue monthly self breast exams. 2. A clinical breast exam by your physician is recommended on an annual basis. 3. This exam should not preclude additional follow-up of suspicious palpable abnormalities. Electronically signed and approved by: Usha Cole M.D. Radiologist
== END | disposition home or self-care (01) ==
LOC: RADMAMWWP 13:30
PROVIDERS: ATTEND Pediatrics
DX: Z12.31 Encounter for screening mammogram for malignant neoplasm of breast (principal); Z80.3 Family history of malignant neoplasm of breast
CPT/HCPCS: 77063; 77067

== ENCOUNTER → 2023-10-20 | Outpatient (CLI) | payer OTHER ==
--- NOTE | 2023-10-21 19:16 | US ---
EXAMINATION TYPE: US abdomen complete DATE OF EXAM: 10/20/2023 COMPARISON: NONE CLINICAL INDICATION: Female, 48 years old with history of R10.2 PELVIC AND PERINEAL PAIN; Pt states g eneralized ABD bloating TECHNIQUE: Multiple sonographic images of the abdomen are obtained. FINDINGS: EXAM MEASUREMENTS: Liver Length: 17.9 cm Gallbladder Wall: 0.2 cm CBD: 0.4 cm Spleen: 10.1 cm Right Kidney: 11.0 x 4.4 x 5.2 cm Left Kidney: 11.2 x 5.5 x 4.9 cm [employer] NOTES: Pancreas: wnl Liver: Mildly heterogenous echotexture Gallbladder: wnl Evidence for sonographic Nielson's sign: No CBD: wnl Spleen: wnl Right Kidney: Simple Cystic lesion mid= 4.4 x 3.9 x 4.7 cm Left Kidney: wnl, lower pole gassed out Upper IVC: wnl Abd Aorta: wnl IMPRESSION: 1. Hepatomegaly with mild fatty fixation. 2. Right renal cyst
--- NOTE | 2023-10-21 19:18 | US ---
EXAMINATION TYPE: US pelvic complete DATE OF EXAM: 10/20/2023 COMPARISON: NONE CLINICAL INDICATION: Female, 48 years old with history of R10.2 PELVIC AND PERINEAL PAIN; Pt states g eneralized ABD bloating TECHNIQUE: Transabdominal (TA). Transabdominal sonographic images of the pelvis were acquired. Date of LMP: 10/03/2023 EXAM MEASUREMENTS: Uterus: 9.2 x 4.6 x 5.5 cm Endometrial Stripe: 0.7 cm Right Ovary: 2.5 x 2.0 x 2.1 cm Left Ovary: 2.9 x 2.2 x 2.7 cm 1. Uterus: Anteverted wnl 2. Endometrium: wnl 3. Right Ovary: wnl 4. Left Ovary: Exophytic simple appearing cystic lesion= 2.6 x 2.6 x 3.0 cm 5. Bilateral Adnexa: wnl 6. Posterior cul-de-sac: wnl Urinary bladder is sonolucent. The posterior wall is normal. IMPRESSION: Left ovarian cyst. Follow-up exam in 6 weeks or following the next normal menstrual perio d can be performed.
--- NOTE | 2023-10-23 16:59 | MM ---
Reason for Exam: Screening (asymptomatic). Last screening mammogram was performed 12 month(s) ago. Patient History: Menarche at age 14. First Full-Term at age 23. Hormonal Contraceptives for 18 years from age 19 until age 48. Maternal grandmother had breast cancer, age 45. Last menstrual period: 10/03/2023 Risk Values: Claritza 5 year model risk: 0.8%. NCI Lifetime model risk: 8.4%. Prior Study Comparison: 08/27/2020 Left Diagnostic Mammogram, [facility]. 09/20/2021 Bilateral Screening Mammogram, [facility]. 10/19/2022 Bilateral MG 3D screening mammo w/cad, [facility]. Tissue Density: There are scattered fibroglandular densities. Findings: Analyzed By CAD. Bilateral areas of asymmetric density remain unchanged. There is no suspicious group of microcalcifications or new suspicious mass in either breast. Overall Assessment: Benign, BI-RAD 2 Management: Screening Mammogram of both breasts in 1 year. . Patient should continue monthly self-breast exams. A clinical breast exam by your physician is recommended on an annual basis. This exam should not preclude additional follow-up of suspicious palpable abnormalities. Note on Claritza scores and lifetime risk: 1. A Claritza score greater than 3% is considered moderate risk. If this is the case, consider specialist referral to assess eligibility for a risk reducing agent. 2. If overall lifetime risk for the development of breast cancer is 20% or higher, the patient may qualify for future screening with alternating mammogram and breast MRI. Electronically signed and approved by: Usha Cole M.D. Radiologist
== END | disposition home or self-care (01) ==
LOC: RADUSWWP 08:45
PROVIDERS: ATTEND Pediatrics
DX: Z12.31 Encounter for screening mammogram for malignant neoplasm of breast (principal); N83.202 Unspecified ovarian cyst, left side; K76.0 Fatty (change of) liver, not elsewhere classified; N28.1 Cyst of kidney, acquired; R16.0 Hepatomegaly, not elsewhere classified; Z80.3 Family history of malignant neoplasm of breast
CPT/HCPCS: 76700; 76856; 77063; 77067

== ENCOUNTER → 2024-11-12 | Outpatient (CLI) | payer OTHER ==
--- NOTE | 2024-11-12 13:53 | MM ---
Reason for Exam: Screening (asymptomatic). Last mammogram was performed 1 year(s) and 1 month(s) ago. Patient History: Menarche at age 14. First Full-Term at age 23. Premenopausal. Hormonal Contraceptives for 18 years from age 19 until age 48. Maternal grandmother had breast cancer, age 45. Risk Values: Claritza 5 year model risk: 0.8%. NCI Lifetime model risk: 8.3%. Prior Study Comparison: 09/20/2021 Bilateral Screening Mammogram, [facility]. 10/19/2022 Bilateral MG 3D screening mammo w/cad, [facility]. 10/20/2023 Bilateral MG 3D screening mammo w/cad, [facility]. Tissue Density: The breasts are heterogeneously dense, which may obscure small masses. Findings: Analyzed By CAD. There is no suspicious group of microcalcifications or new suspicious mass in either breast. Overall Assessment: Negative, BI-RAD 1 Management: Screening Mammogram of both breasts in 1 year. Some advise bilateral breast ultrasound surveillance in patients with background dense tissue. Patient should continue monthly self-breast exams. A clinical breast exam by your physician is recommended on an annual basis. This exam should not preclude additional follow-up of suspicious palpable abnormalities. Note on Claritza scores and lifetime risk: 1. A Claritza score greater than 3% is considered moderate risk. If this is the case, consider specialist referral to assess eligibility for a risk reducing agent. 2. If overall lifetime risk for the development of breast cancer is 20% or higher, the patient may qualify for future screening with alternating mammogram and breast MRI. [facility], , 11/12/2024 1:50 PM. Electronically signed and approved by: Terence Boykin M.D.
== END | disposition home or self-care (01) ==
LOC: RADMAMWWP 13:18
PROVIDERS: ATTEND Pediatrics
DX: Z12.31 Encounter for screening mammogram for malignant neoplasm of breast (principal); R92.333 Mammographic heterogeneous density, bilateral breasts; Z80.3 Family history of malignant neoplasm of breast; Z92.0 Personal history of contraception
CPT/HCPCS: 77063; 77067